=== PATIENT | female | born 1960 | race Caucasian/White ===

== ENCOUNTER 2019-11-21 14:03 | Emergency (ER) | payer BC ==
[~2019-11-21] VITALS: Ht 160 cm; Wt 85.7 kg
[2019-11-21 14:16] VITALS: BP 173/55; Ht 160 cm; Wt 85.7 kg
== END 2019-11-21 16:02 | disposition home or self-care (01) ==
LOC: ED 14:03
DX: S39.012A Strain of muscle, fascia and tendon of lower back, initial encounter (principal); I10 Essential (primary) hypertension; E78.00 Pure hypercholesterolemia, unspecified; Z88.0 Allergy status to penicillin; X58.XXXA Exposure to other specified factors, initial encounter; Y93.89 Activity, other specified; Y92.89 Other specified places as the place of occurrence of the external cause; Y99.8 Other external cause status
CPT/HCPCS: J1885